=== PATIENT | male | born 1970 | race Caucasian/White ===

== ENCOUNTER 2018-03-07 08:25 | Observation (INO) | payer OTHER ==
--- NOTE | 2018-03-07 08:41 | ED Physician Documentation ---
PD HPI CHEST PAIN - Stated complaint Stated Complaint: CHEST PX/PANICK ATTACK - History obtained from History obtained from: Patient - History of Present Illness Timing - onset: How many days ago (4-5 days of feeling general weakness, fatigue , dyspnea on exertion, and fast heart rate/palpitations mainly at night. Did not sleep well due to feeling fast heart rate, anxious, and some dyspnea last night particularly.) Timing - onset during: Light activity Timing - duration: Days (4-5) Timing - details: Still present, Waxing and waning. No: Intermittant Quality: Pressure, Tightness Location: Left chest Radiation: No: Jaw, Neck, Back Improved by: No: Rest (he notices his heart rate more when resting.) Associated symptoms: Shortness of air (with activity), Palpitations. No: Nausea , Feeling faint / dizzy, Cough Similar symptoms before: Has not had sx before Recently seen: Not recently seen Review of Systems Constitutional: denies: Fever, Chills Nose: denies: Rhinorrhea / runny nose, Congestion Throat: denies: Sore throat Respiratory: reports: Dyspnea. denies: Cough GI: denies: Abdominal Pain, Nausea, Vomiting, Diarrhea : denies: Dysuria, Frequency Skin: denies: Rash, Lesions Musculoskeletal: reports: Extremity swelling (noted some edema when he was in [place] few days ago, but it was 112 degrees and he atrributed it to the heat.) Neurologic: reports: Generalized weakness. denies: Focal weakness, Numbness, Near syncope Psychiatric: reports: Anxiety, Insomnia (poor sleep the past few days due to the above symptoms.). denies: Depressed Endocrine: reports: Weight gain (in the past week or so, several lbs.). denies : Easy bruising / bleeding Immunocompromised: denies: Immunocompromised PD PAST MEDICAL HISTORY - Past Medical History Cardiovascular: None Respiratory: None Neuro: None Endocrine/Autoimmune: None GI: None - Past Surgical History Past Surgical History: No - Present Medications Home Medications: Ambulatory Orders Medication Instructions Recorded Confirmed No Known Home Medications [No 03/07/18 03/07/18 Known Home Medications] - Allergies Allergies/Adverse Reactions: Allergies Allergy/AdvReac Type Severity Reaction Status Date / Time ibuprofen Allergy Respiratory Verified 03/07/18 14:03 - Living Situation Living Situation: reports: With spouse/s.o. Living Arrangement: reports: At home - Social History Does the pt smoke?: No Does the pt drink ETOH?: Yes ETOH Use: Beer (he had been drinking regularly and stopped about 6 months ago, then resumed "social drinking" few months ago and has been more heavily drinking again the past week or so. ) Does the pt have substance abuse?: No - Family History Family history: reports: Non contributory. denies: CAD, Sudden - Immunizations Immunizations are current?: Yes PD ED PE NORMAL - Vitals Vital signs reviewed: Yes (heart rate fast and irregular; BP adequate. ) - General General: Alert and oriented X 3, Well developed/nourished - HEENT HEENT: Pharynx benign - Neck Neck: Supple, no meningeal sign, No adenopathy, Thyroid normal, No JVD - Cardiac Cardiac: No murmur, No rub. No: RRR (fast and irregular) - Respiratory Respiratory: Clear bilaterally - Abdomen Abdomen: Normal bowel sounds, Soft, Non tender, Non distended, No organomegaly - Male Male : Deferred - Rectal Rectal: Deferred - Back Back: No CVA TTP - Derm Derm: Normal color, Warm and dry - Extremities Extremities: No deformity, No tenderness to palpate, Normal ROM s pain, No calf tenderness / cord, Other (minimal edema in both lower legs) - Neuro Neuro: Alert and oriented X 3, No motor deficit, Normal speech Eye Opening: Spontaneous Motor: Obeys Commands Verbal: Oriented GCS Score: 15 - Psych Psych: Normal mood. No: Normal affect (mildly anxious) Results - Vitals Vitals: Vital Signs - 24 hr 03/07/18 03/07/18 03/07/18 08:47 09:01 09:15 Temperature 36.5 C Heart Rate 156 H 146 H 158 H Respiratory 26 H 18 18 Rate Blood Pressure 125/96 H 120/80 131/97 H O2 Saturation 98 97 97 03/07/18 03/07/18 03/07/18 09:19 09:24 09:27 Temperature Heart Rate 150 H 135 H 144 H Respiratory 20 20 16 Rate Blood Pressure 118/99 H 115/84 H 106/92 H O2 Saturation 96 96 98 03/07/18 03/07/18 03/07/18 09:33 09:43 09:56 Temperature Heart Rate 120 H 132 H 132 H Respiratory 16 20 19 Rate Blood Pressure 114/93 H 111/95 H 120/100 H O2 Saturation 96 94 95 03/07/18 03/07/18 03/07/18 10:01 10:06 10:11 Temperature Heart Rate 119 H 119 H 129 H Respiratory 20 22 21 Rate Blood Pressure 111/96 H 117/99 H 116/96 H O2 Saturation 95 96 96 03/07/18 03/07/18 03/07/18 10:21 10:27 10:33 Temperature Heart Rate 124 H 102 H 110 H Respiratory 16 20 16 Rate Blood Pressure 116/102 H 121/99 H 114/101 H O2 Saturation 96 98 97 03/07/18 03/07/18 03/07/18 10:39 10:42 10:46 Temperature Heart Rate 112 H 109 H 118 H Respiratory 20 21 22 Rate Blood Pressure 97/86 H 115/95 H 118/92 H O2 Saturation 97 98 96 03/07/18 03/07/18 03/07/18 10:51 10:58 11:03 Temperature Heart Rate 90 97 74 Respiratory 16 16 22 Rate Blood Pressure 112/84 H 113/94 H 110/79 O2 Saturation 95 98 98 03/07/18 03/07/18 11:16 11:45 Temperature Heart Rate 78 88 Respiratory 15 22 Rate Blood Pressure 111/96 H 120/103 H O2 Saturation 97 98 Oxygen O2 Source Room air - EKG (time done) 08:39 Rate: Rate (enter#) (184) Rhythm: Atrial fibrillation [place]: Normal QRS: Normal Ischemia: Normal ST segments. No: ST elevation c/w ischemia, ST depression, Hyperacute T waves Compare to prior EKG: Old EKG unavailable - Labs Labs: Laboratory Tests 03/07/18 03/07/18 03/07/18 08:44 08:44 08:44 WBC 6.3 RBC 4.43 L Hgb 14.2 Hct 42.5 MCV 95.9 H MCH 32.0 H MCHC 33.4 RDW 14.2 Plt Count 230 MPV 9.1 Neut # (Auto) 4.7 Lymph # (Auto) 1.1 L [place] # (Auto) 0.4 Eos # (Auto) 0.1 Baso # (Auto) 0.0 Absolute Nucleated RBC 0.00 Nucleated RBC % 0.0 Sodium 137 Potassium 3.9 Chloride 105 Carbon Dioxide 23 Anion Gap 9.0 BUN 12 Creatinine 0.9 Estimated GFR (MDRD) 89 Glucose 134 H Calcium 9.1 Magnesium 2.0 Total Bilirubin 1.8 H AST 29 ALT 41 Alkaline Phosphatase 66 Troponin I < 0.04 B-Natriuretic Peptide Total Protein 6.8 Albumin 3.9 Globulin 2.9 Albumin/Globulin Ratio 1.3 Lipase 24 03/07/18 08:44 WBC RBC Hgb Hct MCV MCH MCHC RDW Plt Count MPV Neut # (Auto) Lymph # (Auto) [place] # (Auto) Eos # (Auto) Baso # (Auto) Absolute Nucleated RBC Nucleated RBC % Sodium Potassium Chloride Carbon Dioxide Anion Gap BUN Creatinine Estimated GFR (MDRD) Glucose Calcium Magnesium Total Bilirubin AST ALT Alkaline Phosphatase Troponin I B-Natriuretic Peptide 493 H Total Protein Albumin Globulin Albumin/Globulin Ratio Lipase - Rads (name of study) chest Radiology: Prelim report reviewed, EMP read contemporaneously (no significant CHF nor infiltrates) PD MEDICAL DECISION MAKING - ED course Complexity details: reviewed results, re-evaluated patient (Getting improvement in his heart rate with metoprolol doses 3. The PVCs were less frequent to gone now as well. However heart rate was still 120-130. He was given dose of diltiazem which did improve his heart rate to under 100 when combined with the others. He has not had any improvement at all with the procainamide. He does not appear to have any significant congestive heart failure. Labs are otherwise okay. I talked with the hospitalist who will place him in the hospital for further evaluation of the heart, echocardiogram, rate control and further treatment. The patient is feeling much improved symptom lemus.), considered differential (Rapid atrial fib with symptoms subsequently. ), d/w patient - Sepsis Event Vital Signs: Vital Signs - 24 hr 03/07/18 03/07/18 03/07/18 08:47 09:01 09:15 Temperature 36.5 C Heart Rate 156 H 146 H 158 H Respiratory 26 H 18 18 Rate Blood Pressure 125/96 H 120/80 131/97 H O2 Saturation 98 97 97 03/07/18 03/07/18 03/07/18 09:19 09:24 09:27 Temperature Heart Rate 150 H 135 H 144 H Respiratory 20 20 16 Rate Blood Pressure 118/99 H 115/84 H 106/92 H O2 Saturation 96 96 98 03/07/18 03/07/18 03/07/18 09:33 09:43 09:56 Temperature Heart Rate 120 H 132 H 132 H Respiratory 16 20 19 Rate Blood Pressure 114/93 H 111/95 H 120/100 H O2 Saturation 96 94 95 03/07/18 03/07/18 03/07/18 10:01 10:06 10:11 Temperature Heart Rate 119 H 119 H 129 H Respiratory 20 22 21 Rate Blood Pressure 111/96 H 117/99 H 116/96 H O2 Saturation 95 96 96 03/07/18 03/07/18 03/07/18 10:21 10:27 10:33 Temperature Heart Rate 124 H 102 H 110 H Respiratory 16 20 16 Rate Blood Pressure 116/102 H 121/99 H 114/101 H O2 Saturation 96 98 97 03/07/18 03/07/18 03/07/18 10:39 10:42 10:46 Temperature Heart Rate 112 H 109 H 118 H Respiratory 20 21 22 Rate Blood Pressure 97/86 H 115/95 H 118/92 H O2 Saturation 97 98 96 03/07/18 03/07/18 03/07/18 10:51 10:58 11:03 Temperature Heart Rate 90 97 74 Respiratory 16 16 22 Rate Blood Pressure 112/84 H 113/94 H 110/79 O2 Saturation 95 98 98 03/07/18 03/07/18 11:16 11:45 Temperature Heart Rate 78 88 Respiratory 15 22 Rate Blood Pressure 111/96 H 120/103 H O2 Saturation 97 98 Oxygen O2 Source Room air Departure - Departure Disposition: ED Place in Observation Clinical Impression: Atrial fibrillation with rapid ventricular response, Dyspnea Condition: Stable Discharge Date/Time: 03/07/18 13:28
[2018-03-07] MEDS ORDERED: SODIUM CHLORIDE 0.9% 1,000 ML IV ONE ×2 (09:03→10:15)
[2018-03-07] MEDS ORDERED: PROCAINAMIDE 1,000 MG/10 ML SYRINGE IV STA (09:04)
[2018-03-07] MEDS ORDERED: LORazepam 2 MG/ML VIAL IVP STA (09:13)
[2018-03-07 09:17] LABS: BASOPHILS % (AUTO) 0.4 %; EOSINOPHILS # (AUTO) 0.1 10^3/uL (0.0-0.7); EOSINOPHILS % (AUTO) 0.9 %; HGB - HEMOGLOBIN 14.2 g/dL (14.0-18.0); LYMPHOCYTES # (AUTO) 1.1 10^3/uL (1.5-3.5); LYMPHOCYTES % (AUTO) 16.9 %; MEAN CORPUSCULAR HGB CONC 33.4 g/dL (32.0-36.0); MEAN CORPUSCULAR VOLUME 95.9 fL (80.0-94.0); MEAN PLATELET VOLUME 9.1 fL (7.4-11.4); MONOCYTES # (AUTO) 0.4 10^3/uL (0.0-1.0); MONOCYTES % (AUTO) 6.8 %; NEUTROPHILS # (AUTO) 4.7 10^3/uL (1.5-6.6); PLT - PLATELET COUNT 230 10^3/uL (130-450); RED BLOOD COUNT 4.43 10^6/uL (4.70-6.10); RED CELL DISTRIBUTION WIDTH 14.2 % (12.0-15.0); WHITE BLOOD COUNT 6.3 x10^3/uL (4.8-10.8)
[2018-03-07] MEDS: METOPROLOL 5 MG/5 ML VIAL IVP STA ×2 (09:18→09:57)
[2018-03-07] MEDS ORDERED: METOPROLOL 5 MG/5 ML VIAL IVP STA ×2 (09:19→09:49)
[2018-03-07 09:24] LABS: ALBUMIN 3.9 g/dL (3.2-5.5); ALBUMIN/GLOBULIN RATIO 1.3 (1.0-2.2); BILIRUBIN,TOTAL 1.8 mg/dL (0.2-1.0); CALCIUM 9.1 mg/dL (8.5-10.3); CREATININE 0.9 mg/dL (0.6-1.2); TOTAL PROTEIN 6.8 g/dL (6.7-8.2)
[2018-03-07] MEDS ORDERED: POTASSIUM BICARB 25 MEQ TABLET PO STA (09:49)
[2018-03-07] MEDS ORDERED: diltiaZEM INJ 5 MG/ML VIAL IVP STA ×2 (10:15→10:35)
--- NOTE | 2018-03-07 10:24 | XRAY Report ---
Procedure Date: 03/07/2018 Accession Number: [id number] / [id number] Procedure: XR - Chest 1 View X-Ray CPT Code: 42363 FULL RESULT: EXAM: CHEST RADIOGRAPHY EXAM DATE: 03/07/2018 09:26 AM. CLINICAL HISTORY: Atrial fib; dyspnea. COMPARISON: None. TECHNIQUE: 1 view. FINDINGS: Lungs/Pleura: Mild bilateral vascular and interstitial prominence with peripheral interstitial prominence at lung bases bilaterally. Mild interstitial edema is consideration. No airspace edema. No pleural effusion. No focal consolidation. No pneumothorax. Mediastinum: Cardiomegaly. Calcified atherosclerosis in the aorta. No adenopathy. Hilar prominence, most likely vascular in nature. Other: Remote healed rib fracture on the right and posterior seventh rib. No acute bone abnormality. IMPRESSION: 1. Bilateral interstitial prominence in the lungs with cardiomegaly and calcified atherosclerosis. Interstitial edema is a consideration for this finding. No gross airspace pulmonary edema. No focal consolidation. 2. Exam otherwise as above. RADIA
[2018-03-07] MEDS ORDERED: ONDANSETRON 4 MG/2 ML VIAL IVP PRN (12:05)
[2018-03-07] MEDS ORDERED: SODIUM CHLORIDE FLUSH 0.9% 10 ML SYRINGE IVP PRN (12:05)
[2018-03-07] MEDS ORDERED: ACETAMINOPHEN 325 MG TABLET PO PRN (12:05)
--- NOTE | 2018-03-07 12:11 | HISTORY & PHYSICAL EXAMINATION ---
Chief Complaint - Chief Complaint Chief Complaint: fatigue and shortness of breath History of Present Illness - Admitted From Admitted From:: ER - History Obtained From History obtained from: pt - History of Present Illness HPI Comment/Other: Mr. Hamilton is 48-yrs-old male a significant medical history of previous alcohol abuse, anxiety, who present ER complain of fatigue and shortness of breath. Pt report he has been shortness of breath for couple months, specially when he did exercise. In the past 4-5 days, he felt general weakness, chest palpitation, fatigue, dyspnea on exertion. he felt fast heart rate and palpitations mainly at night. He could not fall into sleep well because of palpitation. He felt particularly dyspnea on last night. Pt was found HR at 180 with new onset of Afib. Pt was given beta-hector and Cardiazem in ER, then HR was controlled around 80. Troponin is negative. Pt denies chest pain. pt denies other symptoms. Pt report he cut down his alcohol resumption significantly, no withdrawal. Pt denies cigarette smoking, drug abuse. CXR reveals cardiomegaly and pulmonary interstitial edema. pt also had elevated BNP. History - Past Medical History Psych: reports: Anxiety MRSA Hx?: No - Past Surgical History General: reports: Appendectomy Ortho: reports: Other - Family & Social History Family History: Mother: Alive and Well, Father: , CAD Family History Comment/Other: pt is living in [place] with his , no child. Living arrangement: At home Living Situation: With spouse/s.o. Social History Notes: pt is self-employee. pt has hx of alcohol abuse, now he cut down drinking. pt denies cigarette smoking and drug abuse. - POLST Patient has POLST: No POLST Status: Full Code Meds/Allgy - Home Medications Home Medications: Ambulatory Orders Medication Instructions Recorded Confirmed No Known Home Medications [No 03/07/18 03/07/18 Known Home Medications] - Allergies Allergies/Adverse Reactions: Allergies Allergy/AdvReac Type Severity Reaction Status Date / Time ibuprofen Allergy Respiratory Verified 03/07/18 14:03 Review of Systems - Constitutional Constitutional: reports: Fatigue. denies: Fever, Chills, Malaise, Weakness, Poor appetite, Diaphoresis, Night sweats - Eyes Eyes: denies: Pain, Irritation, Amaurosis, Blurred vision, Spots in vision, Field loss, Vision loss, Dipolpia - Ears, Nose & Throat Ears, Nose & Throat: denies: Ear pain, Hearing loss, Hearing aids, Tinnitus, Vertigo, Nasal pain, Nasal discharge, Nosebleeds, Nasal obstruction, Postnasal drainage, Dentures, Sore throat, Hoarseness, Mouth lesions, Bleeding gums - Cardiovascular Cariovascular: reports: Palpitations, Decr. exercise tolerance. denies: Irregular heart rate, Chest pain, Edema, Lightheadedness, Syncope, Exertional dyspnea - Respiratory Respiratory: denies: Cough, Sputum production, Wheezing, Snoring, Hemoptysis, Orthopnea, SOB at rest, SOB with exertion - Gastrointestinal Gastrointestinal: denies: Abdominal pain, Abdominal distention, Constipation, Diarrhea, Change in bowel habits, Rectal bleeding, Black stools, Bloody stools, Nausea, Vomiting, Bile emesis, Thad blood emesis, Coffee grounds emesis, Reflux /heartburn, Bloating - Genitourinary Genitourinary: denies: Dysuria, Frequency, Urgency, Hematuria, Incontinence, Flank pain, Nocturia, Urethral discharge - Musculoskeletal Musculoskeletal: denies: Muscle pain, Back pain, Muscle aches, Stiffness, Limited range of motion, Muscle weakness, Gout, Joint pain, Joint swelling - Integumentary Integumentary: denies: Rash, Pruritis, Lesions, Dryness, Lumps, Acne, Pigment changes, Nail changes - Neurological Neurological: denies: General weakness, Focal weakness, Headache, Dizziness, Numbness, Memory problems, Pre-existing deficit, Abnormal gait, Seizures, Incoordination, Slurred speech - Psychiatric Psychiatric: denies: Depression, Anxiety, Suicidal, Delusions, Hallucinations, Homicidal - Endocrine Endocrine: denies: Polyuria, Polydypsia, Polyphagia, Intolerance to cold - Hematologic/Lymphatic Hematologic/Lymphatic: denies: Anemia, Bruising, Petechiae, Blood clots, Lymphadenopathy, Bleeding tendencies Exam - Vital Signs Reviewed Vital Signs: Yes Vital Signs: Vital Signs x48h Temp Pulse Resp BP Pulse Ox 03/07/18 11:45 88 22 120/103 H 98 03/07/18 11:16 78 15 111/96 H 97 03/07/18 11:03 74 22 110/79 98 03/07/18 10:58 97 16 113/94 H 98 03/07/18 10:51 90 16 112/84 H 95 03/07/18 10:46 118 H 22 118/92 H 96 03/07/18 10:42 109 H 21 115/95 H 98 03/07/18 10:39 112 H 20 97/86 H 97 03/07/18 10:33 110 H 16 114/101 H 97 03/07/18 10:27 102 H 20 121/99 H 98 03/07/18 10:21 124 H 16 116/102 H 96 03/07/18 10:11 129 H 21 116/96 H 96 03/07/18 10:06 119 H 22 117/99 H 96 03/07/18 10:01 119 H 20 111/96 H 95 03/07/18 09:56 132 H 19 120/100 H 95 03/07/18 09:43 132 H 20 111/95 H 94 03/07/18 09:33 120 H 16 114/93 H 96 03/07/18 09:27 144 H 16 106/92 H 98 03/07/18 09:24 135 H 20 115/84 H 96 03/07/18 09:19 150 H 20 118/99 H 96 03/07/18 09:15 158 H 18 131/97 H 97 03/07/18 09:01 146 H 18 120/80 97 03/07/18 08:47 36.5 C 156 H 26 H 125/96 H 98 - Physical Exam General Appearance: positive: No acute distress, Alert. negative: Lethargic Eyes Bilateral: positive: Normal inspection, PERRL, No lid inflammation, Conjunctivae nml ENT: positive: ENT inspection nml, Pharynx nml, No signs of dehydration. negative: Purulent nasal drainage, Pharyngeal erythema, Oral lesions Neck: positive: Nml inspection, Thyroid nml, No JVD, Trachea midline. negative : Thyromegaly, Lymphadenopathy (R), Lymphadenopathy (L), Stiff neck, Carotid bruit, Swelling/bruising, Tracheal deviation Respiratory: positive: Chest non-tender, No respiratory distress, Breath sounds nml. negative: Wheezes, Rales, Rhonchi Cardiovascular: positive: Regular rate & rhythm, No murmur, No gallop. negative : Irregularly irregular, Extrasystoles, Tachycardia, Bradycardia, JVD present, Systolic murmur, Diastolic murmur Peripheral Pulses: positive: 2+ Abdomen: positive: Non-tender, No organomegaly, Nml bowel sounds, No distention. negative: Tenderness, Guarding, Rebound Back: positive: Nml inspection. negative: CVA tenderness (R), CVA tenderness (L ) Skin: positive: Color nml, No rash, Warm, Dry. negative: Cyanosis, Diaphoresis , Pallor Extremities: positive: Non-tender, Full ROM, Nml appearance. negative: Calf tenderness, Joint swelling, Kirstin's sign/cords Neurologic/Psychiatric: positive: Oriented x3, Motor nml, Sensation nml, Mood/ affect nml. negative: Weakness, Sensory loss, Facial droop, Slurred/abnml speech, Depressed mood/affect Conclusion/Plan - Problem List (1) Atrial fibrillation with rapid ventricular response Conclusion/Plan: pt already had palpitation for at least 4-5 days, ER tried procainamide but unsuccessfully convert to SR. Unknown if any clots, so did not do cardiac conversion. start with Cardizem PO then possible switch to Metoprolol, dependent on ECHO result start Xarelto, then follow up metallurgical analyst for possible cardiac conversion. tele and vital monitor ECHO (2) Dyspnea Conclusion/Plan: pt had elevated BNP, and pulmonary interstitial edema ECHO, follow up start with spironolactone Xopenex PRN Qualifiers: Dyspnea type: dyspnea on exertion Qualified Code(s): R06.09 - Other forms of dyspnea (3) Anxiety Conclusion/Plan: hx of anxiety ativan PRN (4) DVT prophylaxis Conclusion/Plan: SCD (5) Full code status Conclusion/Plan: pt request full code - Lab Results Fish Bones: 03/07/18 08:44 03/07/18 08:44 Core Measures - Anticipated LOS I expect patient to be DC'd or transferred within 96 hours.: Yes - DVT/VTE - Prophylaxis VTE/DVT Device ordered at admit?: Yes VTE/DVT Prophylaxis med ordered at admit?: Yes
[2018-03-07] MEDS ORDERED: RIVAROXABAN 15 MG TABLET PO SCH (13:00)
[2018-03-07] MEDS ORDERED: RIVAROXABAN 10 MG TABLET PO SCH (13:04)
[2018-03-07] MEDS: FAMOTIDINE 20 MG TABLET PO SCH (13:50)
[2018-03-07] MEDS ORDERED: METOPROLOL 5 MG/5 ML VIAL IVP PRN (14:33)
[2018-03-07] MEDS ORDERED: METOPROLOL SUCCINATE 25 MG TABLET PO SCH (15:00)
[2018-03-07] MEDS: LISINOPRIL 5 MG TABLET PO SCH (15:37)
[2018-03-07] MEDS: SPIRONOLACTONE 25 MG TABLET PO SCH (15:38)
[2018-03-07] MEDS: SODIUM CHLORIDE FLUSH 0.9% 10 ML SYRINGE IVP SCH (17:19)
[2018-03-07] MEDS ORDERED: LEVALBUTEROL 1.25 MG/3 ML NEB INH PRN (17:32)
[2018-03-07] MEDS: LORazepam 2 MG/ML VIAL IVP PRN (20:17)
[2018-03-08] MEDS: SODIUM CHLORIDE FLUSH 0.9% 10 ML SYRINGE IVP SCH (00:08)
[2018-03-08] MEDS: LORazepam 2 MG/ML VIAL IVP PRN ×4 (00:08→13:57)
[2018-03-08 06:04] LABS: BASOPHILS # (AUTO) 0.1 10^3/uL (0.0-0.1); BASOPHILS % (AUTO) 1.1 %; EOSINOPHILS # (AUTO) 0.2 10^3/uL (0.0-0.7); EOSINOPHILS % (AUTO) 2.5 %; HGB - HEMOGLOBIN 13.6 g/dL (14.0-18.0); LYMPHOCYTES # (AUTO) 1.6 10^3/uL (1.5-3.5); LYMPHOCYTES % (AUTO) 26.2 %; MEAN CORPUSCULAR HEMOGLOBIN 32.3 pg (27.0-31.0); MEAN CORPUSCULAR HGB CONC 33.7 g/dL (32.0-36.0); MEAN CORPUSCULAR VOLUME 95.8 fL (80.0-94.0); MEAN PLATELET VOLUME 8.8 fL (7.4-11.4); MONOCYTES # (AUTO) 0.4 10^3/uL (0.0-1.0); MONOCYTES % (AUTO) 6.4 %; NEUTROPHILS # (AUTO) 3.8 10^3/uL (1.5-6.6); NEUTROPHILS % (AUTO) 63.8 %; PLT - PLATELET COUNT 195 10^3/uL (130-450); RED BLOOD COUNT 4.22 10^6/uL (4.70-6.10); RED CELL DISTRIBUTION WIDTH 13.9 % (12.0-15.0)
[2018-03-08 06:20] LABS: ALBUMIN 3.1 g/dL (3.2-5.5); ALBUMIN/GLOBULIN RATIO 1.2 (1.0-2.2); BILIRUBIN,TOTAL 1.2 mg/dL (0.2-1.0); CALCIUM 8.8 mg/dL (8.5-10.3); CREATININE 0.8 mg/dL (0.6-1.2); MAGNESIUM 1.8 mg/dL (1.7-2.8); TOTAL PROTEIN 5.7 g/dL (6.7-8.2)
[2018-03-08] MEDS ORDERED: NITROGLYCERIN SL 0.4 MG TABLET SL PRN (07:58)
[2018-03-08] MEDS ORDERED: MORPHINE 2 MG/ML SYRINGE IVP PRN (07:59)
[2018-03-08] MEDS: LISINOPRIL 5 MG TABLET PO SCH (08:09)
[2018-03-08] MEDS: FAMOTIDINE 20 MG TABLET PO SCH (08:09)
[2018-03-08] MEDS: SPIRONOLACTONE 25 MG TABLET PO SCH (08:10)
[2018-03-08] MEDS ORDERED: METOPROLOL SUCCINATE 25 MG TABLET PO SCH (08:12)
[2018-03-08] MEDS ORDERED: POLYETHYLENE GLYCOL 3350 17 GM PACKET PO SCH (09:00)
[2018-03-08 12:16] VITALS: BP 116/103
--- NOTE | 2018-03-08 14:42 | DISCHARGE SUMMARY ---
Discharge Summary Discharge Date: 03/08/18 Discharging Provider: LEONARDO Primary Care Provider: no PCP yet Condition at Discharge: Stable Discharge Disposition: 02 Transfer Acute Care Hosp [facility] - DIAGNOSES Admission Diagnoses: (1) Atrial fibrillation with rapid ventricular response (2) Dyspnea (3) Anxiety Discharge Diagnoses with Status of Each Condition: (1) Atrial fibrillation with rapid ventricular response Now pt is asymptomatic after treatment. He feel good. unsteady HR from 70-140 with beta-hector to control. transfer to [facility] for advance care. (2) Dyspnea resolved. pt state he does not have more after treatment. (3) Anxiety stable. (4) systolic heart failure Pt's EF in ECHO is 25-30%. pt has alcohol abuse for many years. It is his first time to be found to have impaired heart function. transfer to [facility] for advance care. pt started to have Metoprolol succinate, Xarelto, Lisinopril, spironolactone. (5) VT asymptomatic, stable, no more VT since last night. transfer to [facility] for advance care. - HPI History of Present Illness: Mr. Hamilton is 48-yrs-old male a significant medical history of previous alcohol abuse, anxiety, who present ER complain of fatigue and shortness of breath. Pt report he has been shortness of breath for couple months, specially when he did exercise. In the past 4-5 days, he felt general weakness, chest palpitation, fatigue, dyspnea on exertion. he felt fast heart rate and palpitations mainly at night. He could not fall into sleep well because of palpitation. He felt particularly dyspnea on last night. Pt was found HR at 180 with new onset of Afib. Pt was given beta-hector and Cardiazem in ER, then HR was controlled around 80. Troponin is negative. Pt denies chest pain. pt denies other symptoms. Pt report he cut down his alcohol resumption significantly, no withdrawal. Pt denies cigarette smoking, drug abuse. CXR reveals cardiomegaly and pulmonary interstitial edema. pt also had elevated BNP. - ALLERGIES Allergies/Adverse Reactions: Allergies Allergy/AdvReac Type Severity Reaction Status Date / Time ibuprofen Allergy Respiratory Verified 03/07/18 14:03 - MEDICATIONS Home Medications: Ambulatory Orders Medication Instructions Recorded Confirmed No Known Home Medications [No 03/07/18 03/07/18 Known Home Medications] - PHYSICAL EXAM AT DISCHARGE General Appearance: positive: No acute distress, Alert. negative: Lethargic Eyes Bilateral: positive: Normal inspection, PERRL, No lid inflammation, Conjunctivae nml ENT: positive: ENT inspection nml, Pharynx nml, No signs of dehydration. negative: Purulent nasal drainage, Pharyngeal erythema, Oral lesions Neck: positive: Nml inspection, Thyroid nml, No JVD, Trachea midline. negative : Thyromegaly, Lymphadenopathy (R), Lymphadenopathy (L), Stiff neck, Carotid bruit, Swelling/bruising, Tracheal deviation Respiratory: positive: Chest non-tender, No respiratory distress, Breath sounds nml. negative: Wheezes, Rales, Rhonchi Cardiovascular: positive: No murmur, No gallop, Tachycardia. negative: Irregularly irregular, Extrasystoles, Bradycardia, JVD present, Systolic murmur , Diastolic murmur Peripheral Pulses: positive: 2+ Abdomen: positive: Non-tender, No organomegaly, Nml bowel sounds, No distention. negative: Tenderness, Guarding, Rebound Back: positive: Nml inspection. negative: CVA tenderness (R), CVA tenderness (L ) Skin: positive: Color nml, No rash, Warm, Dry. negative: Cyanosis, Diaphoresis , Pallor Extremities: positive: Non-tender, Full ROM, Nml appearance, No pedal edema. negative: Pedal edema, Calf tenderness, Joint swelling, Kirstin's sign/cords Neurologic/Psychiatric: positive: Oriented x3, Motor nml, Sensation nml, Mood/ affect nml. negative: Weakness, Sensory loss, Facial droop, Slurred/abnml speech, Depressed mood/affect - LABS Result Diagrams: 03/08/18 05:55 03/08/18 05:55 - FOLLOW UP Follow Up: transfer to [facility] - TIME SPENT Time Spent in Discharge (Minutes): 55
== END 2018-03-08 13:55 | disposition short-term general hospital (02) ==
LOC: ED 08:25 → OBS 12:05
PROVIDERS: ADMIT Nurse Practitioner Gerontology; ATTEND Nurse Practitioner Gerontology
DX: I48.91 Unspecified atrial fibrillation (principal); I47.2 Ventricular tachycardia; I49.3 Ventricular premature depolarization; I50.20 Unspecified systolic (congestive) heart failure; F41.9 Anxiety disorder, unspecified; F10.10 Alcohol abuse, uncomplicated
CPT/HCPCS: 36415; 71045; 80053; 83690; 83735; 83880; 84484; 85025; 93005; 93306; 96361; 96374; 96375; 96376; 99218; 99285; A9270; J2060; J2690

== ENCOUNTER 2018-03-27 12:47 | Outpatient (CLI) | payer OTHER ==
[2018-03-27 13:18] LABS: ALBUMIN 3.9 g/dL (3.2-5.5); ALBUMIN/GLOBULIN RATIO 1.2 (1.0-2.2); CALCIUM 9.4 mg/dL (8.5-10.3); CREATININE 0.8 mg/dL (0.6-1.2); TOTAL PROTEIN 7.1 g/dL (6.7-8.2)
== END 2018-03-27 12:48 | disposition home or self-care (01) ==
LOC: LAB 12:47
PROVIDERS: ATTEND Physician Assistant
DX: I42.9 Cardiomyopathy, unspecified (principal); I48.91 Unspecified atrial fibrillation; Z79.899 Other long term (current) drug therapy
CPT/HCPCS: 36415; 80053

== ENCOUNTER 2018-05-28 10:10 | Emergency (ER) | payer OTHER ==
--- NOTE | 2018-05-28 12:23 | XRAY Report ---
Reason: right pneumothorax on previous CXR; comparison Procedure Date: 05/28/2018 Accession Number: [id number] / [id number] Procedure: XR - Chest 2 View X-Ray CPT Code: 65305 FULL RESULT: EXAM: CHEST RADIOGRAPHY EXAM DATE: 05/28/2018 12:07 PM. CLINICAL HISTORY: Right pneumothorax on previous CXR; comparison. COMPARISON: CHEST 1 VIEW 03/07/2018 9:15 AM. Additionally, comparison is made to the chest radiograph obtained at the [facility] earlier today as well as the coronary CT which was performed within the [facility] system. TECHNIQUE: 2 views. FINDINGS: The previously demonstrated at least moderate sized right pneumothorax is essentially unchanged on plain radiograph. Conversation with Dr. Mariee reveals that this is currently clinically asymptomatic despite its size. Aerated lungs and the cardiomediastinal silhouette are otherwise unremarkable. Healing right rib fracture is again seen. IMPRESSION: Stable interval examination with redemonstration of at least moderate right pneumothorax. Findings were discussed in person with the ordering physician, Dr. Mariee, at the time of interpretation. JOAN
[2018-05-28] MEDS ORDERED: LORazepam 2 MG/ML VIAL IVP STA (13:26)
[2018-05-28] MEDS ORDERED: fentaNYL 100 MCG/2 ML VIAL IVP STA (13:26)
--- NOTE | 2018-05-28 13:49 | ED Physician Documentation ---
History of Present Illness - Stated complaint Stated Complaint: FINDING ON XRAY SENT BY CARDIO - Chief complaint Chief Complaint: Resp - History obtained from History obtained from: Patient, Family - Additonal information Additional information: The patient is a 48-year-old male who was diagnosed with a spontaneous pneumothorax 2 days ago and presents to the emergency department and now after a chest x-ray in [place] this morning revealed possible expansion of the pneumothorax. He denies any chest pain, shortness of breath, cough, or fever. The pneumothorax 2 days ago was diagnosed incidentally on a CT scan that was being performed for cardiac purposes. He has a history of cardiomyopathy and intermittent atrial fibrillation, for which he is on Xarelto. After the chest x-ray done in [place] this morning was read by the radiologist, the patient was advised to present to the nearest emergency department. Review of Systems Constitutional: denies: Fever Nose: denies: Congestion Throat: denies: Sore throat Cardiac: denies: Chest pain / pressure Respiratory: denies: Dyspnea, Cough GI: denies: Abdominal Pain, Nausea, Vomiting Skin: denies: Rash Musculoskeletal: denies: Back pain, Extremity swelling Neurologic: denies: Focal weakness, Numbness, Headache PD PAST MEDICAL HISTORY - Past Medical History Past Medical History: Yes Cardiovascular: Congestive heart failure, Atrial fibrillation Respiratory: None Neuro: None Endocrine/Autoimmune: None GI: None : None HEENT: None Psych: Anxiety Musculoskeletal: None Derm: None - Past Surgical History Past Surgical History: No General: Appendectomy Ortho: Other - Present Medications Home Medications: Ambulatory Orders Medication Instructions Recorded Confirmed No Known Home Medications 03/07/18 03/07/18 - Allergies Allergies/Adverse Reactions: Allergies Allergy/AdvReac Type Severity Reaction Status Date / Time ibuprofen Allergy Respiratory Verified 03/07/18 14:03 - Social History Does the pt smoke?: No Smoking Status: Never smoker Does the pt drink ETOH?: No Does the pt have substance abuse?: No - Immunizations Immunizations are current?: Yes - POLST Patient has POLST: No POLST Status: Full Code PD ED PE NORMAL - Vitals Vital signs reviewed: Yes (Mild hypertension initially.) - General General: Alert and oriented X 3, Well developed/nourished - HEENT HEENT: Atraumatic, Pharynx benign - Neck Neck: No adenopathy, No JVD, Other (No tracheal shift.) - Cardiac Cardiac: RRR - Respiratory Respiratory: No respiratory distress, Other (Breath sounds slightly decreased on right compared to left.) - Abdomen Abdomen: Soft, Non tender - Back Back: No CVA TTP - Derm Derm: No rash - Extremities Extremities: No edema, No calf tenderness / cord - Neuro Neuro: Alert and oriented X 3, No motor deficit, Normal speech Results - Vitals Vitals: Vital Signs - 24 hr 05/28/18 05/28/18 05/28/18 10:22 11:00 11:30 Temperature 36.5 C Heart Rate 53 L 50 L 52 L Respiratory 12 14 14 Rate Blood Pressure 133/93 H 121/90 H 118/73 O2 Saturation 100 98 99 05/28/18 13:00 Temperature Heart Rate 55 L Respiratory 14 Rate Blood Pressure O2 Saturation 99 Oxygen O2 Source Room air - Rads (name of study) 2-view CXR Radiology: Prelim report reviewed, Discussed with rads, EMP read contemporaneously, See rad report (Moderate right pneumothorax, unchanged from previous chest x-ray earlier today.) PD MEDICAL DECISION MAKING - ED course Complexity details: reviewed results, re-evaluated patient, considered differential, d/w patient, d/w family, d/w school plant consultant ED course: The patient's presentation is significant for right pneumothorax. He is asymptomatic, and has had the pneumothorax for at least the past 4 days. The patient's chest x-ray now is unchanged from his previous chest x-ray done more than 4 hours ago in [place]. I discussed his condition with the general surgeon, Dr. Banks, who reviewed the x-rays and advised that it would be reasonable to place a anterior chest catheter, but that it would also be reasonable to not do a thoracostomy, but to repeat the chest x-ray in 2 days to reevaluate. I had a prolonged discussion with the patient and his regarding the risks and benefits of procedure versus no procedure and reevaluating. Because of his intermittent atrial fibrillation he is on Xarelto, which slightly increases the risk of potential bleeding. The patient deferred to his brother, who is an emergency physician, and who advised him to not have the procedure at this time, but to repeat chest x-ray in 2 days. He is being discharged with prescription to have repeat chest x-ray on Friday, in 2 days, with results to be called to Dr. Banks. He will return if he develops any symptoms, such as shortness of breath, chest pain, or otherwise worsening symptoms. In addition he will contact his health care attorney to ask if he can stop his Xarelto temporarily until there is resolution of the pneumothorax, in case he does end up undergoing thoracostomy procedure. - Sepsis Event Vital Signs: Vital Signs - 24 hr 05/28/18 05/28/18 05/28/18 10:22 11:00 11:30 Temperature 36.5 C Heart Rate 53 L 50 L 52 L Respiratory 12 14 14 Rate Blood Pressure 133/93 H 121/90 H 118/73 O2 Saturation 100 98 99 05/28/18 13:00 Temperature Heart Rate 55 L Respiratory 14 Rate Blood Pressure O2 Saturation 99 Oxygen O2 Source Room air Departure - Departure Disposition: 01 Home, Self Care Clinical Impression: Pneumothorax, right Condition: Stable Instructions: ED Pneumothorax Spontaneous Follow-Up: Hector Rodriguez MD [Provider Admit Priv/Credential] - Carlos Stern MD [Primary Care Provider] - Comments: Return on Friday for repeat chest x-ray. Results of the chest x-ray should go to Dr. Banks for comparison with today's chest x-ray. Discussed with your Application Spec the possibility of going off of Xarelto until the pneumothorax resolves, in case you need a chest thoracostomy procedure. Return to the emergency department if you develop any chest pain, shortness of breath, or otherwise worsening symptoms. Discharge Date/Time: 05/28/18 14:28
[2018-05-28 14:04] VITALS: BP 120/88
--- NOTE | 2018-05-30 17:11 | ED Physician Documentation ---
ED Addendum - Addendum Addendum: 05/30/18 17:07 Chest x-ray results reveal a decreased in size pneumothorax, down from 30 mm to 22 mm. I discussed the results with the patient who is currently asymptomatic and states he is "feeling great". I also discussed the case with Dr. Rodriguez who would like to see the patient on Friday, 06/03 in his office. He would like a repeat chest x-ray performed on 06/02 and the results called to him. A prescription for the chest x-ray was left at the vest front presser for the patient. Patient is aware of the follow-up plan and is agreeable to this. This document was made in part using voice recognition software. While efforts are made to proofread this document, sound alike and grammatical errors may occur.
== END 2018-05-28 14:28 | disposition home or self-care (01) ==
LOC: ED 10:10
DX: J93.9 Pneumothorax, unspecified (principal); I48.91 Unspecified atrial fibrillation; Z79.01 Long term (current) use of anticoagulants
CPT/HCPCS: 71046; 99283; 99284

== ENCOUNTER 2018-05-30 11:14 | Outpatient (CLI) | payer OTHER ==
--- NOTE | 2018-05-30 11:59 | XRAY Report ---
Reason: RIGHT PTX Procedure Date: 05/30/2018 Accession Number: [id number] / [id number] Procedure: XR - Chest 2 View X-Ray CPT Code: 81128 FULL RESULT: EXAM: CHEST RADIOGRAPHY EXAM DATE: 05/30/2018 11:24 AM. CLINICAL HISTORY: RIGHT PTX. COMPARISON: CHEST 2 VIEW 05/28/2018 11:56 AM. TECHNIQUE: 2 views. FINDINGS: Lungs/Pleura: Right apical pneumothorax measures up to approximately 22 m pleural separation, previously 30 mm in the same location. No new pulmonary opacity. Mediastinum: Heart and mediastinal contours are unremarkable. Other: Old healed right seventh rib fracture. IMPRESSION: Small to moderate right pneumothorax appears slightly decreased from prior. No new pulmonary opacity. [facility] The call report notification system was initiated by Dr. Maninder Emerson at 11:51 hrs on 05/30/18. The above findings were discussed with Dr. Darren Dr by Dr. Maninder Emerson at 11:58 hrs on 05/30/18.
== END 2018-05-30 11:15 | disposition home or self-care (01) ==
LOC: DI 11:14
PROVIDERS: ATTEND Emergency Medicine Emergency Medical Services
DX: J93.9 Pneumothorax, unspecified (principal)
CPT/HCPCS: 71046

== ENCOUNTER 2018-06-04 10:09 | Outpatient (CLI) | payer OTHER ==
--- NOTE | 2018-06-04 10:54 | XRAY Report ---
Reason: F/U R PNEUMOTHORAX Procedure Date: 06/04/2018 Accession Number: [id number] / [id number] Procedure: XR - Chest 2 View X-Ray CPT Code: 83336 FULL RESULT: EXAM: CHEST RADIOGRAPHY EXAM DATE: 06/04/2018 10:35 AM. CLINICAL HISTORY: Follow-up right pneumothorax. COMPARISON: Chest 2 views 05/30/2018 11:18 AM. Chest 2 views 05/28/2018 11:56 AM. TECHNIQUE: 2 views. FINDINGS: Lungs/Pleura: Mild interval decrease in the size of the previously demonstrated right-sided pneumothorax with associated rib fractures. No focal opacities evident. No pleural effusion. Normal volumes. Mediastinum: Heart and mediastinal contours are unremarkable. Other: None. IMPRESSION: Interval decrease in size of the likely rib fracture associated pneumothorax, now small to moderate. Please note that compared to 05/28/2018, this is a marked reduction in size. The overall trend is one of slow resorption. [facility]
== END 2018-06-04 10:10 | disposition home or self-care (01) ==
LOC: DI 10:09
PROVIDERS: ATTEND Internal Medicine Gastroenterology
DX: J93.9 Pneumothorax, unspecified (principal)
CPT/HCPCS: 71046

== ENCOUNTER 2018-10-07 10:36 | Outpatient (CLI) | payer OTHER ==
[2018-10-07 11:10] LABS: ALBUMIN 4.2 g/dL (3.2-5.5); ALBUMIN/GLOBULIN RATIO 1.4 (1.0-2.2); CALCIUM 9.5 mg/dL (8.5-10.3); CREATININE 0.8 mg/dL (0.6-1.2); TOTAL PROTEIN 7.2 g/dL (6.7-8.2)
[2018-10-07 12:11] LABS: THYROID STIMULATING HORMONE 1.27 uIU/mL (0.34-5.60)
[2018-10-07 12:40] LABS: LUTEINIZING HORMONE 3.68 mIU/mL
== END 2018-10-07 10:37 | disposition home or self-care (01) ==
LOC: LAB 10:36
PROVIDERS: ATTEND Family Medicine
DX: N62 Hypertrophy of breast (principal)
CPT/HCPCS: 36415; 80053; 82670; 83002; 84403; 84443